=== PATIENT | female | born 1955 | race Caucasian/White ===

== ENCOUNTER 2018-08-03 11:10 | Emergency (ER) | payer MEDICARE, MEDICAID ==
[~2018-08-03] VITALS: Ht 172.7 cm; Wt 86.0 kg
[~2018-08-03 11:10] MED LIST: ADV50250 IH; ALBU18HF2 IH; ASPI-1264 PO; GABA-338 PO; IBUP-1984 PO; POTA20TA19 PO
[2018-08-03 11:22] VITALS: BP 162/80
[2018-08-03] MEDS ORDERED: IBUP-1985 PO (12:00)
[2018-08-03] MEDS ORDERED: orphenadrine citrate 60mg/2ml inj. IM ONE (12:40)
[2018-08-03] MEDS ORDERED: ketorolac tromethamine 15mg/ml inj. IM ONE (12:40)
== END 2018-08-03 13:05 | disposition home or self-care (01) ==
LOC: ER 11:11
DX: M54.5 Low back pain (principal); G89.29 Other chronic pain; M62.81 Muscle weakness (generalized); I10 Essential (primary) hypertension; J44.9 Chronic obstructive pulmonary disease, unspecified; K21.9 Gastro-esophageal reflux disease without esophagitis; Z86.73 Personal history of transient ischemic attack (TIA), and cerebral infarction without residual deficits; Z88.8 Allergy status to other drugs, medicaments and biological substances; Z79.82 Long term (current) use of aspirin; Z79.899 Other long term (current) drug therapy
CPT/HCPCS: 96372; 99283; J1885; J2360

== ENCOUNTER 2023-12-31 10:58 | Emergency (ER) | payer MEDICARE, MEDICAID ==
[~2023-12-31] VITALS: Ht 167.6 cm; Wt 84.0 kg
[~2023-12-31 10:58] MED LIST changes: +IBUP-1985 PO; +POTA-207 PO; -POTA20TA19 PO
[2023-12-31] MEDS: LIDOcaine 1% W/epiNEPHrine 1:100,000 20ml vial SQ ONE (11:57)
[2023-12-31 12:53] VITALS: BP 130/58; PULSE 60; RESP 17; TEMP 98.1; O2SAT 96
== END 2023-12-31 12:55 | disposition home or self-care (01) ==
LOC: ER 10:59
DX: S61.511A Laceration without foreign body of right wrist, initial encounter (principal); I10 Essential (primary) hypertension; J45.909 Unspecified asthma, uncomplicated; J44.9 Chronic obstructive pulmonary disease, unspecified; K21.9 Gastro-esophageal reflux disease without esophagitis; G89.29 Other chronic pain; M54.9 Dorsalgia, unspecified; F32.A Depression, unspecified; Z79.899 Other long term (current) drug therapy; Z79.82 Long term (current) use of aspirin; Z79.1 Long term (current) use of non-steroidal anti-inflammatories (NSAID); Z86.73 Personal history of transient ischemic attack (TIA), and cerebral infarction without residual deficits; Z72.89 Other problems related to lifestyle; X58.XXXA Exposure to other specified factors, initial encounter; Y93.89 Activity, other specified; Y92.89 Other specified places as the place of occurrence of the external cause; Y99.8 Other external cause status
CPT/HCPCS: 12001; 73110; 99283; A6258; A6402; A6446; Z7610; A6449

== ENCOUNTER 2024-04-17 14:05 | Outpatient (CLI) | payer MEDICARE, MEDICAID | END 2024-04-17 23:59 | disposition home or self-care (01) | LOC: RAD 14:05 | PROVIDERS: ATTEND Nurse Practitioner Primary Care | DX: R13.10 Dysphagia, unspecified (principal); G81.91 Hemiplegia, unspecified affecting right dominant side; I69.391 Dysphagia following cerebral infarction; J44.9 Chronic obstructive pulmonary disease, unspecified; Z79.51 Long term (current) use of inhaled steroids; Z79.899 Other long term (current) drug therapy | CPT/HCPCS: 74230 ==